=== PATIENT | female | born 1945 | race Caucasian/White ===

== ENCOUNTER 2016-06-23 15:50 | Emergency (ER) | payer MEDICARE ==
[~2016-06-23] VITALS: Ht 167.6 cm; Wt 88.6 kg
[~2016-06-23 15:50] MED LIST: ACET-2605 PO; ATOR20TA65 PO; CALC PO; CHOL10008 PO; FLUT9.9S NS; HYDR-4003 PO; LORA0.5T PO; LORA1TAB PO; MAG PO; SERT100T9 PO; SOTA80TA PO; UBID1CAP2 PO
[2016-06-23 15:54] VITALS: BP 94/52; PULSE 153; RESP 24; O2SAT 98
[2016-06-23 16:04] VITALS: BP 133/76; PULSE 60; RESP 20; O2SAT 97
--- NOTE | 2016-06-23 16:12 | ED.REPORT ---
HPI-General Illness Date of Service Jun 23, 2016 ED Provider: Berry Landry MD Pt is a 70 y/o female w/ a hx of SVT, pacemaker insertion, HTN, COPD, presenting to the ED via EMS c/o rapid palpitations onset prior to arrival. Her first SVT event was October 2014 at which time she was hospitalized at [facility] for 6 days. She also notes intermittent episodes of symptomatic bradycardia which required pacemaker insertion. She believes she is in SVT again today with associated back pain and lightheadedness. She has required multiple adenosine treatments previously. Pt denies CP, SOB, fever, chills, change LOC. Brace Maker: Alvaro Galindo in [place] Nursing Notes Stated Complaint: SVT EVENT Chief Complaint: Dysrhythmia/Cardiac Nursing Notes Reviewed: Yes Allergies: Coded Allergies: ciprofloxacin (Verified Allergy, Unknown, UNKNOWN, 05/06/15) lisinopril (Verified Allergy, Unknown, UNKNOWN, 05/06/15) codeine (Verified Adverse Reaction, Unknown, NO REACTION-PT DOESN'T LIKE "HOW IT MAKES ME FEEL", 05/06/15) Scheduled ([Calc/Mag 750-465MG]) 1 TAB PO DAILY Atorvastatin Calcium (Atorvastatin Calcium) 20 Mg Tablet 20 MG PO Q2DAY Cholecalciferol (Vitamin D3) (Vitamin D3) 1,000 Unit Tab.chew 1,000 UNIT PO DAILY Fluticasone Propionate (Flonase Allergy Relief) 50 Mcg/Actuation [place].susp 2 SPRAYS NS DAILY Sertraline HCl (Sertraline) 100 Mg Tablet 100 MG PO DAILY Sotalol HCl (Sotalol) 80 Mg Tablet 40 MG PO BID Ubidecarenone/[place]-3/Vit E (Co Q-10-Vit E-Fish Oil Sfgl) 1 Each Capsule 1 EACH PO DAILY Scheduled PRN Hydrocodone-Acetaminophen 5-325 mg (Hydrocodone-Acetaminophen 5-325 mg) 1 Each Tablet 1 TABLET PO Q6H PRN PRN For Pain Lorazepam (Lorazepam) 0.5 Mg Tablet 0.5 MG PO HS PRN PRN For Insomnia Lorazepam (Lorazepam) 1 Mg Tablet 1 MG PO BID PRN PRN For Insomnia Miscellaneous Medications Acetaminophen/Diphenhydramine (Tylenol Pm Ex-Strength Caplet) 500 Mg-25 Mg Tablet 1 EACH PO General Time Seen by MD: 16:03 Chief Complaint Other (Rapid palps) Hx Obtained From: Patient, EMS Arrived By: Ambulance Sudden in Onset?: Yes Onset Occurred: Just prior to arrival Symptom Duration: Since onset Location: : Back Quality: Painful Severity: Current: Mild Severity: Maximum: Mild Past Medical History Past Medical History cervical spondylosis with symptoms of cervical myelopathy Paroxysmal SVT Paroxysmal bradycardia s/p pacemaker insertion Reports: COPD, GERD, Hypertension Past Surgical History C3-4, C4-5, C5-6, and C6-7 anterior cervical diskectomy and fusion on August 14, 2012 Reports: Appendectomy, Cataract surgery, Hysterectomy Reports: Pacemaker insertion Smoking History Current Every Day Smoker Ambulatory Status Independent Review of Systems Full Review of Systems Constitutional: Denies: Chills, Fever Respiratory: Denies: Non-productive cough, Shortness of breath Cardiovascular: Reports: Palpitations, Denies: Chest pain GI: Denies: Abdominal pain, Nausea, Vomiting Skin: Denies Bruising, Denies Diaphoresis Neurologic: Reports: Lightheaded, Denies: Change LOC, Confusion Complete sys rev & neg: except as marked. Physical Exam Vital Signs Vital Signs Date Time Temp Pulse Resp B/P Pulse Ox O2 Delivery O2 Flow Rate FiO2 06/23/16 17:46 60 17 147/87 97 Room Air 06/23/16 16:56 60 21 127/72 98 Nasal Cannula 06/23/16 16:04 60 20 133/76 97 Room Air 06/23/16 15:54 36.2 153 24 94/52 98 Room Air Initial VS: Reviewed, Vital signs abnormal Head / Eyes: Atraumatic, Normocephalic, PERRL ENT: Mucous membranes moist, Conjunctiva normal, No scleral icterus Neck: Supple, Full range of motion Respiratory: Breath sounds normal, Clear to auscultation, No respiratory distress Abdomen / GI: Soft, Non-tender Extremities: Vascular intact, Neuro intact, No swelling, No tenderness Skin: Warm, Dry, No cyanosis Neurologic: Alert, Oriented, Nonfocal Psychiatric: Mood/affect normal, Behavior normal, Normal thought content General/Constitutional: Awake, Alert, No acute distress, Cooperative, Not toxic appearing Cardiovascular: Regular rhythm, Heart sounds NL, No gallop, No murmurs, No rubs , Cap refill not delayed, Peripheral circulation NL Heart Rate / Rhythm: Positive: Tachycardia Interpretation & Diagnostics Lab Results Interpretation Result Diagram: 3/9/17 1600 06/23/16 1600 Test 06/23/16 16:00 White Blood Count 8.2th/mm3 (3.8-10.1) Red Blood Count 4.93mil/mm3 (3.90-5.20) Hemoglobin 14.3g/dL (12.0-15.6) Hematocrit 44.4% (35.0-46.0) Mean Corpuscular Volume 90.1fL (81-100) Mean Corpuscular Hemoglobin 29.0pg (27.0-35.0) Mean Corpuscular Hemoglobin Concent 32.2% (32.0-37.0) Red Cell Distribution Width 13.3% (12.3-15.4) Platelet Count 198bil/L (150-400) Neutrophils (%) (Auto) 58.3% (40-74) Lymphocytes (%) (Auto) 29.5% (14-46) Monocytes (%) (Auto) 8.7% (4-12) Eosinophils (%) (Auto) 2.9% (0-5) Basophils (%) (Auto) 0.4% (0-3) Prothrombin Time 10.7sec (8.1-12.5) Prothromb Time International Ratio 1.00ratio Activated Partial Thromboplast Time 26.9sec (22.8-33.0) Sodium Level 138mEq/L (134-144) Potassium Level 4.2mEq/L (3.5-5.2) Chloride Level 100mEq/L (97-108) Carbon Dioxide Level 24mmol/L (18-29) Blood Urea Nitrogen 14mg/dL (8-27) Creatinine 0.62mg/dL (0.57-1.00) Estimat Glomerular Filtration Rate 136mL/min (>59) Glucose Level 110mg/dL (60-99) Calcium Level 9.6mg/dL (8.5-10.1) Magnesium Level 1.9mg/dL (1.6-2.6) Total Bilirubin 0.3mg/dL (0.0-1.2) Aspartate Amino Transf (AST/SGOT) 18U/L (0-50) Alanine Aminotransferase (ALT/SGPT) 10U/L (0-32) Alkaline Phosphatase 72U/L (25-165) Troponin T < 0.010ug/L (0.0-0.011) Pro-B-Type Natriuretic Peptide 177.7pg/mL (0-301) Total Protein 7.1g/dL (6.4-8.4) Albumin 4.4g/dL (3.4-5.0) Hold Casarez Top Tube Received (Received) ECG Interpretation ECG Interpretation: Narrow complex tachycardia rate 151 No discernable P waves present Significant ST depression about anterolateral leads Compared to prior date 05/07/15, the patient is no longer in an atrial paced rhythm and is now tachycardic Time: 16:17 Interpreted by: ED physician Normal ECG Interpretation: No acute ischemic changes ECG Interpretation: Atrial paced rhythm rate 60 No longer in SVT When compared to prior EKG dated 05/07/15 she is now back in atrial paced rhythm at 60 bpm Time: 16:50 Interpreted by: ED physician Normal ECG Interpretation: No acute ischemic changes X-Ray Chest Interpretation Chest Xray Interpretation: IMPRESSION: No acute process. Dictated by: Malvin Ratliff M.D. on 06/23/2016 at 16:25 Approved by: Malvin Ratliff M.D. on 06/23/2016 at 16:25 View: Portable, 1 view Interpretation / Wet Read by: Interpret - Radiologist Procedures SVT Treatment Time: 16:29 Procedure Performed by: ED physician Consent / Timeout / Setup: Consent from patient, Time-out performed, Oxygen administered, Pulse oximeter applied, founder and president applied Bearing Down - Valsalva: Unsuccessful Adenosine IV Attempt # 1: Dose 6mg IVP, Unsuccessful, Transient success Adenosine IV Attempt # 2: Dose 12mg IVP, Successful, Patient in NSR Post-Procedure: Complete relief, No complications, Tolerated procedure well, Patient stable Re-Eval/Medical Decision Med Decision/Clinical Course Patient is a 70-year-old female with 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 Upon arrival the patient and planning of lightheadedness and has heart rate in the 150s to 160s, initial blood pressure was in the 90s systolic though quickly dropped into the 70s to 80s systolic with associated lightheadedness. EKG was obtained as above and demonstrated supraventricular tachycardia. 2 large-bore IVs were obtained and given the patient's hemodynamic instability I immediately administered 6 mg of IV adenosine. This briefly converted her to sinus rhythm though she quickly went back into supraventricular tachycardia. A second dose of adenosine was administered in addition to fluid bolus and thereafter the patient converted to sinus rhythm. Repeat EKG demonstrated paced rhythm at 60 bpm consistent with prior EKGs. Labs notable as below: CBC: Unremarkable CMP: unremarkable Troponin negative Coag studies negative Patient was discussed with her supervisor central supply in [place] and presentation thus far was reviewed. It was revealed that the patient recently decreased her dose of sotalol 80 mg twice daily to 60 mg twice daily. It is been recommended the patient to sotalol back to her prior dose. It is felt at this time that there is no indication for admission as after conversion back to paced rhythm her blood pressure quickly improved into the 120s systolic and she had complete resolution of her lightheadedness. She was observed here in the emergency department for a period of time during which she remained hemodynamically stable without any recurrent arrhythmias. She will take her evening sotalol dose earlier tonight and call first thing tomorrow morning to arrange for follow -up with her supervisor central supply. Follow up and return precautions were reviewed in detail and she was discharged in good condition. Time of Eval: 17:24 Patient Status: Condition resolved, Complete relief Re-Evaluation/Progress Note: Pt rechecked. Informed pt of plan for treatment. Pt understands and agrees with plan for treatment. F/U instructions and RTER warnings given. All questions addressed. Consultation #1: Referral / Consult Name: Kirt Garduno MD Consulted With: Cardiology Call Returned at: 16:28 Yarn Handler: Agrees with eval, Agrees with plan Note: Agrees with plan of adenosine and confirms SVT Consultation #2: Consulted With: Cardiology Call Returned at: 16:53 Yarn Handler: Agrees with eval, Agrees with plan Note: Discussed case with a partner of the patient's supervisor central supply Dr. Valencia (sp?). He agrees with plan for discharge. He will make sure she has close followup. Wants patient to change her dose of Sotalol back to what it was previously. Counseled Regarding: Diagnosis, Lab results, Need for follow-up, When/why to return to ED Discharge & Departure Primary Impression: SVT (supraventricular tachycardia) Additional Impressions: Hypotension Hypotension type: unspecified hypotension type Qualified Code: I95.9 - Hypotension, unspecified Lightheadedness Tachy-héctor syndrome Disposition: Home Discharge Condition All VS Reviewed: Yes Condition: Stable Patient Instructions: Supraventricular Tachycardia (ED) Additional Instructions: Thank you for seeking care at the emergency room. It is difficult for us to make definitive diagnoses in the ED but we believe that you are experiencing supraventricular tachycardia possibly related to your medication change. Our primary goal today in the ED was to evaluate you for any life-threatening conditions. Your evaluation was reassuring. You should follow-up with your supervisor central supply tomorrow. I spoke to them today. Call to schedule an appointment. Increase your Sotalol back to 80 mg twice per day. You should return to the ED immediately if you develop fevers, vomiting, cough, shortness of breath, chest pain, lightheadedness, weakness or any other concerning signs or symptoms. Thank you for letting us partake in your care today. Referrals: Wily Morillo MD (PCP) Crit Care Except Billable Proc Time Spent: 105-134 minutes Services Performed: Patient management by me, Time spent at bedside, Reviewing test results, Reviewing imaging, Discussing patient care, Documentation in record, Time with fam/surrogate Scribe Attestation Portions of this note were transcribed by Brayan Hanks. I, Dr. Landry personally performed the history, physical exam and medical decision-making; I reviewed and confirmed the accuracy of the information in the transcribed note. Signed by Susy Nelson, 06/23/16 - 1700 copies to: Wily Morillo MD, Beck O MD Jun 23, 2016 16:12 BRAYAN HANKS Jun 23, 2016 16:18
[2016-06-23] MEDS ORDERED: Adenosine 3 mg/mL 2 mL Inj IVPUSH ONE ×2 (16:15)
[2016-06-23 16:16] LABS: BASOPHILS % (AUTO) 0.4 % (0-3); EOSINOPHILS % (AUTO) 2.9 % (0-5); MONOCYTES % (AUTO) 8.7 % (4-12); Mean Corpuscular Volume 90.1 fL (81-100); NEUTROPHILS % (AUTO) 58.3 % (40-74); Platelet Count 198 bil/L (150-400)
--- NOTE | 2016-06-23 16:26 | DRSVH ---
PROCEDURE: X-RAY CHEST ONE VIEW, PORTABLE ([id number]) INDICATIONS: CHEST PAIN TECHNIQUE: One view of the chest was acquired. COMPARISON: [facility], CR, XR CHEST 1VW (PORTABLE), 05/06/2015, 16:45. FINDINGS: Surgical changes and devices: Left-sided pacer. Anterior cervical fusion. Lungs and pleura: No pleural effusions or pneumothorax. Lungs are clear. Right hemidiaphragm is el evated. Mediastinum: Mediastinal contours appear normal. Heart size is normal. Bones and chest wall: No suspicious bony lesions. Overlying soft tissues appear unremarkable. IMPRESSION: No acute process. Dictated by: Malvin Ratliff M.D. on 06/23/2016 at 16:25 Approved by: Malvin Ratliff M.D. on 06/23/2016 at 16:25
[2016-06-23 16:52] LABS: TROPONIN T < 0.010 ug/L (0.0-0.011)
[2016-06-23 16:56] VITALS: BP 127/72; PULSE 60; RESP 21; O2SAT 98
[2016-06-23 16:57] LABS: Magnesium 1.9 mg/dL (1.6-2.6)
[2016-06-23 17:46] VITALS: BP 147/87; PULSE 60; RESP 17; O2SAT 97
== END 2016-06-23 17:49 | disposition home or self-care (01) ==
LOC: SED 15:50
DX: I47.1 Supraventricular tachycardia (principal); I95.9 Hypotension, unspecified; R42 Dizziness and giddiness; I49.5 Sick sinus syndrome; I10 Essential (primary) hypertension; J44.9 Chronic obstructive pulmonary disease, unspecified; K21.9 Gastro-esophageal reflux disease without esophagitis; F17.200 Nicotine dependence, unspecified, uncomplicated; Z95.0 Presence of cardiac pacemaker; Z88.5 Allergy status to narcotic agent; Z88.1 Allergy status to other antibiotic agents; Z88.8 Allergy status to other drugs, medicaments and biological substances
CPT/HCPCS: 36415; 71010; 80053; 83735; 83880; 84484; 85025; 85610; 85730; 93005; 96374; 99291; 99292; J0153

== ENCOUNTER 2016-07-09 17:23 | Emergency (ER) | payer MEDICARE ==
[~2016-07-09] VITALS: Ht 167.6 cm; Wt 88.2 kg
[2016-07-09 17:25] VITALS: BP 128/79; PULSE 61; RESP 30; O2SAT 96
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
[2016-07-09 18:29] LABS: BASOPHILS % (AUTO) 0.4 % (0-3); EOSINOPHILS % (AUTO) 2.8 % (0-5); Mean Corpuscular Hemoglobin 29.3 pg (27.0-35.0); Mean Corpuscular Volume 89.8 fL (81-100); NEUTROPHILS % (AUTO) 58.9 % (40-74); Platelet Count 172 bil/L (150-400)
[2016-07-09 19:00] LABS: Magnesium 1.8 mg/dL (1.6-2.6)
[2016-07-09 20:15] VITALS: BP 131/85; PULSE 65; RESP 18; O2SAT 95
== END 2016-07-09 20:16 | disposition home or self-care (01) ==
LOC: EDBD 17:23 → EDUNIT# 17:23 → SED 17:23
DX: I47.1 Supraventricular tachycardia (principal); I10 Essential (primary) hypertension; J44.9 Chronic obstructive pulmonary disease, unspecified; K21.9 Gastro-esophageal reflux disease without esophagitis; F17.200 Nicotine dependence, unspecified, uncomplicated; Z86.79 Personal history of other diseases of the circulatory system; Z95.0 Presence of cardiac pacemaker; Z88.1 Allergy status to other antibiotic agents; Z88.8 Allergy status to other drugs, medicaments and biological substances; Z88.5 Allergy status to narcotic agent